=== PATIENT | female | born 1995 | race Caucasian/White ===

== ENCOUNTER 2017-03-24 15:45 | Outpatient (CLI) | payer OTHER ==
[~2017-03-24] VITALS: Ht 152.4 cm; Wt 73.3 kg
[2017-03-24 15:51] VITALS: Ht 152.4 cm; Wt 73.3 kg
[2017-03-24 15:52] VITALS: BP 114/66; PULSE 102; RESP 20
[2017-03-24] MEDS ORDERED: PREN1TAB79 PO (15:55)
[2017-03-24] MEDS ORDERED: TERBUTALINE 1 MG/ML INJ SC PRN (16:45)
--- NOTE | 2017-03-24 17:08 | RADRPT ---
PROCEDURE: US OB CLINICAL INDICATION: evaluation TECHNIQUE: Multiple sonographic images of the pelvis were obtained. The images were reviewed on a PACS workstation. COMPARISON: No prior studies are available for comparison. FINDINGS: The cervix is closed and measures 3.6 cm in length. There is a single viable intrauterine gestation. Cardiac activity is present with 168 beats per min [place]. There is a breech presentation. The placenta is posterior. There is no evidence of placental abruption. RPTAT: AA . IMPRESSION: Cephalic presentation. The cervix is closed and measures 3.6 cm in length. Physician Johanny Date Time Electronically viewed and signed by Physician Johanny on 03/24/2017 17:08 /
[2017-03-24 17:15] LABS: ADD UMIC YES; UR ASCORBIC ACID NEGATIVE (NEGATIVE); UR BACTERIA FEW /HPF (NONE SEEN); UR BILIRUBIN (Dip) NEGATIVE (NEGATIVE); UR BLOOD (Dip) NEGATIVE (NEGATIVE); UR CLARITY SLIGHTLY CLOUDY (CLEAR); UR COLOR YELLOW (YELLOW); UR GLUCOSE (Dip) NEGATIVE (NEGATIVE); UR KETONES (Dip) NEGATIVE (NEGATIVE); UR LEUKOCYTE ESTERASE (Dip) 2+ Leu/ul (NEGATIVE); UR MUCUS MANY /HPF (NONE SEEN); UR NITRITE (Dip) NEGATIVE (NEGATIVE); UR RBC 3 /HPF (0-5); UR SPECIFIC GRAVITY (Dip) 1.024 (1.003-1.030); UR SQUAMOUS EPITHELIAL CELL FEW /HPF (FEW); UR TOTAL PROTEIN (Dip) NEGATIVE (NEGATIVE); UR UROBILINOGEN (Dip) 1+ mg/dL (NEGATIVE)
[2017-03-24] MEDS: LACTATED RINGER'S 250 ML IV PRN ×2 (17:19→19:52)
[2017-03-24 17:38] LABS: BASOPHILS % 0.2 % (0.0-2.0); EOSINOPHILS % 0.2 % (0.0-7.0); HEMATOCRIT 32.5 % (37.0-47.0); HEMOGLOBIN 11.1 g/dl (12.0-16.0); LYMPHOCYTES # 1.6 10^3/ul (0.8-2.9); LYMPHOCYTES % 15.5 % (15.0-51.0); MEAN CORPUSCULAR HEMOGLOBIN 29.1 pg (29.0-33.0); MEAN CORPUSCULAR HGB CONC 34.2 g/dl (32.0-37.0); MEAN CORPUSCULAR VOLUME 85.1 fl (82.0-101.0); MEAN PLATELET VOLUME 11.6 fl (7.4-10.4); MONOCYTE # 0.8 10^3/ul (0.3-0.9); MONOCYTES % 7.8 % (0.0-11.0); NEUTROPHILS % 75.7 % (39.0-77.0); PLATELET COUNT 204 10^3/UL (140-415); RED BLOOD COUNT 3.82 10^6/ul (4.20-5.40); RED CELL DISTRIBUTION WIDTH 12.8 % (11.5-14.5); WHITE BLOOD COUNT 10.6 10^3/ul (4.8-10.8)
--- NOTE | 2017-03-24 20:26 | RADRPT ---
PROCEDURE: OB ultrasound for biophysical profile CLINICAL INDICATION: labor. TECHNIQUE: Multiple sonographic images of the gravid uterus performed. The images were reviewed on a PACS workstation. COMPARISON: None FINDINGS: A single live intrauterine is identified with heart rate of 2154 bpm. Fe tus is in a breech presentation. Placenta is located fundal. Biophysical profile: breathing movement = 2/2 tone = 2/2 motion = 2/2 LUIS FERNANDO = 2/2 LUIS FERNANDO = 12.8 cm. IMPRESSION: 1. Single live intrauterine gestation. 2. Biophysical profile = 8/8. 3. LUIS FERNANDO = 12.8 cm. 4. Breech presentation. RPTAT: HMVK .Venkat Martinez MD, Date Time Electronically viewed and signed by .Venkat Martinez MD, MD on 03/24/2017 20:26 .K/
--- NOTE | 2017-03-24 22:37 | PN ---
Triage Information Date/Time Reason for visit: labor Weeks of Gestation 31 weeks /Para Diabetes: none Hypertention: none Objective Vital Signs Date Time Temp Pulse Resp B/P Pulse Ox O2 Delivery O2 Flow Rate FiO2 03/24/17 15:52 98.3 102 20 114/66 Room Air Heart Rate: 130's Heart Rate Comments Category I Contractions: 6-10 Minutes Apart Exam Cervix closed Results/Medications Result Diagram: 03/24/17 1725 Results 24 hrs Laboratory Tests Test 03/24/17 15:50 03/24/17 17:25 Urine Color YELLOW Urine Clarity SLIGHTLY CLOUDY A Urine pH 5.0 Urine Specific [place] 1.024 Urine Ketones NEGATIVE Urine Nitrite NEGATIVE Urine Bilirubin NEGATIVE Urine Urobilinogen 1+ H Urine Leukocyte Esterase 2+ H Urine Microscopic RBC 3 Urine Microscopic WBC 12 H Urine Squamous Epithelial Cells FEW Urine Calcium Oxalate Crystals MODERATE Urine Bacteria FEW A Urine Mucus MANY A Urine Hemoglobin NEGATIVE Urine Glucose NEGATIVE Urine Total Protein NEGATIVE White Blood Count 10.6 Red Blood Count 3.82 L Hemoglobin 11.1 L Hematocrit 32.5 L Mean Corpuscular Volume 85.1 Mean Corpuscular Hemoglobin 29.1 Mean Corpuscular Hemoglobin Concent 34.2 Red Cell Distribution Width 12.8 Platelet Count 204 Mean Platelet Volume 11.6 H Neutrophils % 75.7 Lymphocytes % 15.5 Monocytes % 7.8 Eosinophils % 0.2 Basophils % 0.2 Nucleated Red Blood Cells % 0.0 Neutrophils # 8.0 H Lymphocytes # 1.6 Monocytes # 0.8 Eosinophils # 0.0 Basophils # 0.0 Nucleated Red Blood Cells # 0.0 Medications Current Medications Terbutaline Sulfate 0.25 mg 0.25 mg PRN PRN SC LABOR Last administered on 03/24/17 17:47; Admin Dose 0.25 MG; Start 03/24/17 at 16:45 Lactated Ringer's (Lr) 250 ml @ 250 mls/hr Q1H PRN IV LABOR Last administered on 03/24/17 19:52; Admin Dose 250 MLS/HR; Start 03/24/17 at 17: 00 Imaging Results Cervical length 3.6 Disposition: Discharge Assessment/Plan After IV hydration and rest, patient feels better. No sign of labor D/C home. ELISA SEVILLA MD Mar 24, 2017 22:37
--- NOTE | 2017-03-24 22:51 | TRIAGE ---
OB Triage Datetime Report Generated by CPN: 03/24/2017 22:51 Datetime: 03/24/2017 22:18 Vaginal Exam Dilatation (cms): 0.0 Exam By: DR. DELSHAD Datetime: 03/24/2017 19:00 Labor Evaluation Frequency: X3 Monitor Mode: External Duration (sec)2399: 40 Quality: Mild Pattern: Normal: <= 5 Contractions in 10 Minutes Resting Tone [place]: Relaxed Heart Rate FHR Baseline Rate: 140 Monitor Mode: External US FHR Baseline Changes: No Baseline Change Variability: Moderate 6-25 bpm Accelerations: 15X15 Decelerations: None Category: Category I Pain Assessment Pain Scale: 0 Pain Presence: None/Denies Pain Type: N/A Pain Goal: 0 Membrane Status: Intact Datetime: 03/24/2017 18:30 Labor Evaluation Frequency: X1 Monitor Mode: External Duration (sec)2399: 40 Quality: Mild Pattern: Normal: <= 5 Contractions in 10 Minutes Resting Tone [place]: Relaxed Heart Rate FHR Baseline Rate: 130 Monitor Mode: External US FHR Baseline Changes: No Baseline Change Variability: Moderate 6-25 bpm Accelerations: 15X15 Decelerations: None Category: Category I Pain Assessment Pain Scale: 0 Pain Presence: None/Denies Pain Type: N/A Pain Goal: 0 Datetime: 03/24/2017 18:00 Labor Evaluation Frequency: X2 Monitor Mode: External Duration (sec)2399: 40 Quality: Strong Pattern: Normal: <= 5 Contractions in 10 Minutes Resting Tone [place]: Relaxed Heart Rate FHR Baseline Rate: 140 Monitor Mode: External US FHR Baseline Changes: No Baseline Change Variability: Moderate 6-25 bpm Accelerations: 15X15 Decelerations: None Category: Category I Pain Assessment Pain Scale: 6 Pain Presence: Intermittent Pain Type: Contraction Pain Location: Abdomen; Back Pain Goal: 0 Membrane Status: Intact Datetime: 03/24/2017 17:30 Labor Evaluation Frequency: X3 Monitor Mode: External Duration (sec)2399: 40 Quality: Strong Pattern: Normal: <= 5 Contractions in 10 Minutes Resting Tone [place]: Relaxed Heart Rate FHR Baseline Rate: 140 Monitor Mode: External US FHR Baseline Changes: No Baseline Change Variability: Moderate 6-25 bpm Accelerations: 15X15 Decelerations: None Category: Category I Pain Assessment Pain Scale: 6 Pain Presence: Intermittent Pain Type: Contraction Pain Location: Abdomen; Back Pain Goal: 0 Datetime: 03/24/2017 17:00 Labor Evaluation Frequency: X5 Monitor Mode: External Duration (sec)2399: 40-60 Quality: Strong Pattern: Normal: <= 5 Contractions in 10 Minutes Resting Tone [place]: Relaxed Heart Rate FHR Baseline Rate: 150 Monitor Mode: External US FHR Baseline Changes: No Baseline Change Variability: Moderate 6-25 bpm Accelerations: 15X15 Decelerations: None Category: Category I Pain Assessment Pain Scale: 6 Pain Presence: Intermittent Pain Type: Contraction Pain Location: Abdomen; Back Pain Goal: 0 Datetime: 03/24/2017 16:20 Labor Evaluation Frequency: X5 Monitor Mode: External Duration (sec)2399: 40-60 Quality: Mild Pattern: Normal: <= 5 Contractions in 10 Minutes Resting Tone [place]: Relaxed Heart Rate FHR Baseline Rate: 140 Monitor Mode: External US FHR Baseline Changes: No Baseline Change Variability: Moderate 6-25 bpm Accelerations: 15X15 Decelerations: None Category: Category I Pain Assessment Pain Scale: 6 Pain Presence: Intermittent Pain Type: Contraction Pain Location: Abdomen; Back Pain Goal: 0 Datetime: 03/24/2017 16:02 EGA: 31.0 Datetime: 03/24/2017 15:55 EGA: 83.2 Datetime: 03/24/2017 15:40 Stage of : OB Triage Assessment Type: Triage Time of Arrival: 03/24/2017 15:24 Arrived By: Ambulatory Arrived From: Office Chief Complaint: BACK AND ABDOMINAL PAIN SINCE THURSDAY Movement: Present Contractions: Irregular Rupture of Membranes: Denies Vaginal Discharge: Denies Recent Sexual Intercouse: Denies Abdominal Trauma: Not Applicable Patient Complaints: Contractions Time Provider Notified: 03/24/2017 16:34 Provider Notified: DR. WEBSTER Initial Plan: EFM, UA Maternal Assessment Level of Consciousness: Fully Conscious DTR's/Clonus: DTRs 2+; No Clonus Headache: Denies Blurred Vision: No Respiratory Effort: Unlabored; Regular Rhythm; Equal Expansion Breath Sounds, Left: Clear and Equal Breath Sounds, Right: Clear and Equal Nausea/Vomiting: Denies RUQ Epigastric Pain: Denies Lower Extremities Edema: None Degree: None Upper Extremities Edema: None Degree: None Facial Edema: None Temperature Route: Axillary Fall Risk Assessment History of Falling: (0) No Secondary Diagnosis: (0) No Ambulatory Aid: (0) Bedrest/Nurse Assist IV Therapy: (0) No Gait: (0) Normal/Bedrest/Immobile Mental Status: (0) Oriented to Own Ability Fall Score: 0 Fall Risk Score Definition: No Risk: No action required
== END 2017-03-24 22:35 | disposition home or self-care (01) ==
LOC: OBT 15:45 → L-D 15:48 → OBT 22:35
PROVIDERS: ATTEND Obstetrics & Gynecology
DX: O47.03 False labor before 37 completed weeks of gestation, third trimester (principal); Z3A.31 31 weeks gestation of pregnancy
CPT/HCPCS: 36415; 76817; 76818; 81001; 85025; 96360; 96361; 96372; J3105; Z7500; G0463

== ENCOUNTER 2017-04-23 00:29 | Outpatient (CLI) | payer OTHER ==
[~2017-04-23] VITALS: Ht 152.4 cm; Wt 75.0 kg
[~2017-04-23 00:29] MED LIST: PREN1TAB79 PO
[2017-04-23 01:22] VITALS: Ht 152.4 cm; Wt 75.0 kg
[2017-04-23 01:27] VITALS: BP 105/63; PULSE 90; RESP 17
[2017-04-23] MEDS ORDERED: FERR256T PO (01:27)
--- NOTE | 2017-04-23 02:24 | RADRPT ---
PROCEDURE: OB ultrasound for biophysical profile CLINICAL INDICATION: labor. TECHNIQUE: Multiple sonographic images of the gravid uterus performed. The images were reviewed on a PACS workstation. COMPARISON: 03/24/2017 FINDINGS: A single live intrauterine is identified with heart rate of 164 bpm. Fet us is in a cephalic presentation. Placenta is located posterior. Biophysical profile: breathing movement = 2/2 tone = 2/2 motion = 2/2 LUIS FERNANDO = 2/2 LUIS FER[place] = 12.2 cm. IMPRESSION: 1. Single live intrauterine gestation. 2. Biophysical profile = 8/8. 3. LUIS FERNANDO = 12.2 cm. RPTAT: HMVK .Venkat Martinez MD, Date Time Electronically viewed and signed by .Venkat Martinez MD, MD on 04/23/2017 02:24 .K/
--- NOTE | 2017-04-23 03:06 | TRIAGE ---
OB Triage Datetime Report Generated by CPN: 04/23/2017 03:06 Datetime: 04/23/2017 03:00 Labor Evaluation Frequency: X5 Monitor Mode: External Duration (sec)2399: 70 Pattern: Normal: <= 5 Contractions in 10 Minutes Heart Rate FHR Baseline Rate: 135 Monitor Mode: External US FHR Baseline Changes: No Baseline Change Variability: Moderate 6-25 bpm Accelerations: 15X15 Datetime: 04/23/2017 02:00 Labor Evaluation Frequency: X3 Monitor Mode: External Duration (sec)2399: 60 Pattern: Normal: <= 5 Contractions in 10 Minutes Heart Rate FHR Baseline Rate: 145 Monitor Mode: External US FHR Baseline Changes: No Baseline Change Variability: Moderate 6-25 bpm Accelerations: 15X15 Datetime: 04/23/2017 01:00 Labor Evaluation Frequency: X1 Monitor Mode: External Duration (sec)2399: 50 Pattern: Normal: <= 5 Contractions in 10 Minutes Heart Rate FHR Baseline Rate: 145 Monitor Mode: External US FHR Baseline Changes: No Baseline Change Variability: Moderate 6-25 bpm Accelerations: 10X10 Category: Category I Datetime: 04/23/2017 00:57 Vaginal Exam Dilatation (cms): 0.0 Effacement (%): 20 Station: -3 Vaginal Bleeding: None Cervix, Consistency: Firm Cervix, Position: Posterior Lie 'A': Unable to Assess Datetime: 04/23/2017 00:48 Time of Arrival: 04/23/2017 00:25 EGA: 35.2 Arrived By: Wheelchair Arrived From: Home Chief Complaint: UC'S 04/22 @0100 Q5MIN IRREGULAR Movement: Present Contractions: Irregular Time Contractions Began: 04/22/2017 01:00 Contractions: Q5MIN Rupture of Membranes: Unsure Vaginal Bleeding: None Vaginal Discharge: Present Recent Sexual Intercouse: Denies Abdominal Trauma: Not Applicable Patient Complaints: Contractions; Other Additional Patient Complaints: VAGINAL DISCHARGE Time Provider Notified: 04/23/2017 00:40 Provider Notified: ARDALAN Datetime: 03/24/2017 22:21 Labor Evaluation Frequency: 0 Monitor Mode: External Pattern: Normal: <= 5 Contractions in 10 Minutes Heart Rate FHR Baseline Rate: 135 Monitor Mode: External US Variability: Moderate 6-25 bpm Accelerations: 15X15 Decelerations: None Category: Category I Datetime: 03/24/2017 22:00 Labor Evaluation Frequency: 0 Monitor Mode: External Resting Tone [place]: Relaxed Heart Rate FHR Baseline Rate: 135 Monitor Mode: External US Variability: Moderate 6-25 bpm Accelerations: 15X15 Decelerations: None Category: Category I Datetime: 03/24/2017 21:00 Labor Evaluation Frequency: OCCASIONAL Monitor Mode: External Duration (sec)2399: 50-60 Quality: Mild Pattern: Normal: <= 5 Contractions in 10 Minutes Resting Tone [place]: Relaxed Heart Rate FHR Baseline Rate: 135 Monitor Mode: External US Variability: Moderate 6-25 bpm Accelerations: 15X15 Decelerations: None Category: Category I Datetime: 03/24/2017 20:00 Labor Evaluation Frequency: X1 Monitor Mode: External Duration (sec)2399: 80 Quality: Mild Pattern: Normal: <= 5 Contractions in 10 Minutes Resting Tone [place]: Relaxed Heart Rate FHR Baseline Rate: 135 Monitor Mode: External US Variability: Moderate 6-25 bpm Accelerations: 15X15 Decelerations: None Category: Category I Datetime: 03/24/2017 19:46 Monitor Mode: External US Datetime: 03/24/2017 16:02 EGA: 31.0 Datetime: 03/24/2017 15:55 EGA: 83.2 Datetime: 03/24/2017 15:40 Vaginal Bleeding: None Fall Risk Assessment Fall Score: 0 Fall Risk Score Definition: No Risk: No action required
--- NOTE | 2017-04-23 06:52 | PN ---
Triage Information Date/Time April 23, 2017 Reason for visit: Thick vaginal discharge and contractions Weeks of Gestation 35 weeks /Para 2 para 1 Diabetes: none Hypertention: none Additional information 22-year-old 2 para 1 with IUP at 35 weeks presented with complaint of contractions and thick vaginal discharge today. She denies any leaking of fluid , vaginal bleeding or decreased movement. She was seen a month ago for contractions and received terbutaline in triage. Labor and prior pregnancies. Denies any itching, burning, odor Objective Vital Signs Date Time Temp Pulse Resp B/P Pulse Ox O2 Delivery O2 Flow Rate FiO2 04/23/17 01:27 98.2 90 17 105/63 Room Air Heart Rate: 130's Heart Rate Comments Category 1 Exam General appearance: Alert and oriented 4. Patient does not appear to be in any acute distress. Abdomen: Soft, gravid, fundal height consistent with gestational age NST: Category 1 Examination: Negative pooling, negative R OM test LUIS FERNANDO: Normal BPP: 8/8 Cervical exam did not show any change during observation Patient contractions resolved with hydration Results/Medications Results 24 hrs Laboratory Tests Test 04/23/17 01:00 Membranes Rupture NEGATIVE Imaging Results PROCEDURE: OB ultrasound for biophysical profile CLINICAL INDICATION: labor. TECHNIQUE: Multiple sonographic images of the gravid uterus performed. The images were reviewed on a PACS workstation. COMPARISON: 03/24/2017 FINDINGS: A single live intrauterine is identified with heart rate of 164 bpm. Fetus is in a cephalic presentation. Placenta is located posterior. Biophysical profile: breathing movement = 2/2 tone = 2/2 motion = 2/2 LU[place] = 2/2 LUIS [place] = 12.2 cm. IMPRESSION: 1. Single live intrauterine gestation. 2. Biophysical profile = 8/8. 3. LUIS FERNANDO = 12.2 cm. RPTAT: HMVK Disposition: Discharge Assessment/Plan IUP at 35 weeks contractions. Resolved with hydration Vaginal discharge. Normal physiologic. Asymptomatic No evidence of PPROM or labor testing reassuring DC home labor precaution and kick count and follow-up with the primary OB within 24-48 hours discussed Patient verbalized understanding RICH GERONIMO MD Apr 23, 2017 06:52
== END 2017-04-23 03:18 | disposition home or self-care (01) ==
LOC: OBT 00:29 → L-D 00:33 → OBT 03:18
PROVIDERS: ATTEND Obstetrics & Gynecology
DX: O62.9 Abnormality of forces of labor, unspecified (principal); Z3A.35 35 weeks gestation of pregnancy
CPT/HCPCS: 76818; 84112; Z7500; G0463